=== PATIENT | female | born 2000 | race Two or more races ===

== ENCOUNTER 2025-02-09 18:29 | Emergency (ER) | payer OTHER ==
[~2025-02-09] VITALS: Ht 157.5 cm; Wt 60.3 kg
[2025-02-09] MEDS ORDERED: ZYRTEC10 MG PO (20:08)
== END 2025-02-09 20:34 | disposition home or self-care (01) ==
LOC: ER 18:30
DX: O26.893 Other specified pregnancy related conditions, third trimester (principal); R21 Rash and other nonspecific skin eruption; Z3A.29 29 weeks gestation of pregnancy

== ENCOUNTER 2025-02-12 03:04 | Outpatient (CLI) | payer OTHER ==
[~2025-02-12] VITALS: Ht 157.5 cm; Wt 61.7 kg
[2025-02-12] VITALS (7 sets, daily range): BP systolic 96–114; BP diastolic 57–75; O2SAT 97
[~2025-02-12 03:04] MED LIST: ZYRTEC10 MG PO
[2025-02-12] MEDS ORDERED: RINGERS SOLUTION,LACTATED 1,000 ML IV SCH (03:15)
[2025-02-12 03:37] LABS: BASO % 0.2 % (0.1-1.2); EOS # 0.06 (0.04-0.54); EOS % 0.7 % (0.7-7.0); LYMPH # 1.39 (1.18-3.74); LYMPH % 16.6 % (19.3-53.1); MEAN PLATELET VOLUME 10.10 fl (9.4-12.4); MONO # 0.83 (0.24-0.82); MONO % 9.9 % (4.7-12.5); NEUT # 6.00 (1.56-6.13); NEUT % 71.9 % (34.0-71.1); RED CELL DISTRIBUTION WIDTH 12.4 % (11.6-14.4); URINE APPEARANCE Clear; URINE BILIRRUBIN Small (NEGATIVE); URINE BLOOD Negative; URINE COLOR Dark Yellow; URINE EPITHELIAL CELLS 34.4 uL (0.0-38.8); URINE GLUCOSE Negative (NEGATIVE); URINE KETONE Trace (NEGATIVE); URINE LEUKOCYTE Moderate; URINE NITRATE Negative; URINE PROTEIN 30 (NEGATIVE); URINE RBC 19.6 uL (0.0-20.8); URINE UROBILINOGEN 2.0 E.U./dl; URINE WBC 47.2 uL (0.0-23.2)
[2025-02-12 03:38] LABS: URINE CAST 0.58 uL (0.0-1.40)
[2025-02-12] MEDS ORDERED: TERBUTALINE SULFATE 1 MG/ML AMPUL SUBCUTANEO ONE (05:30)
[2025-02-12] MEDS ORDERED: NIFEDIPINE 10 MG CAPSULE PO ONE (13:54)
[2025-02-12] MEDS ORDERED: NIFEDIPINE 20 MG CAPSULE PO ONE (13:54)
[2025-02-12] MEDS ORDERED: AMPICILLIN SODIUM 2,000 MG VIAL IV NR (14:00)
[2025-02-12] MEDS ORDERED: BETAMETHASONE ACETATE,SOD PHOS 30 MG/5 ML ML IM NR (14:00)
[2025-02-12] MEDS ORDERED: NIFEDIPINE 30 MG TAB.SA.OSM PO ONE (14:00)
[2025-02-12 15:35] LABS: INR 0.99
[2025-02-12 15:40] LABS: ALT/SGPT 132.0 U/L (12-78); AST/SGOT 58.0 U/L (15-37); BILIRUBIN TOTAL 1.58 mg/dL (0.3-1.2); BUN CREA RATIO 13.0 (7.0-25.0); CREATININE SERUM 0.46 mg/dL (0.55-1.02); GFR 169.87; GLOBULINA 3.5 G/DL (2.4-3.5); GLUCOSE FASTING 87.0 mg/dL (65-100); OSMOLALITY SERUM 278.0 MOSM/KG (275-295)
[2025-02-12] MEDS ORDERED: AMPICILLIN SODIUM 1,000 MG VIAL IV SCH (17:00)
[2025-02-12] MEDS ORDERED: NIFEDIPINE 30 MG TAB.SA.OSM PO SCH (21:00)
[2025-02-13 04:16] VITALS: BP 99/55
[2025-02-13 06:25] VITALS: BP 100/61; O2SAT 97
[2025-02-13] MEDS ORDERED: SOD FERRIC GLUC COMPLX/SUCROSE 125 MG in 0.9 % SODIUM CHLORIDE 100 ML IV SCH (09:23)
[2025-02-13 11:13] VITALS: BP 95/52
[2025-02-13] MEDS ORDERED: SOD FERRIC GLUC COMPLX/SUCROSE 62.5 MG/5 ML AMPUL IV ONE (12:45)
[2025-02-13] MEDS ORDERED: FERROUS SULFAT325 MG PO (13:10)
[2025-02-13] MEDS ORDERED: BETAMETHASONE ACETATE,SOD PHOS 30 MG/5 ML ML IM NR (14:00)
[2025-02-13 15:16] VITALS: BP 108/72; O2SAT 97
== END 2025-02-13 15:17 | disposition home or self-care (01) ==
LOC: OBS/DEL 03:04 → LDR 13:44 → OBS/DEL 13:44 → LDR 02-13 15:17 → OBS/DEL 02-13 15:17
PROVIDERS: Obstetrics & Gynecology; ATTEND Specialist
DX: O46.93 Antepartum hemorrhage, unspecified, third trimester (principal); Z3A.30 30 weeks gestation of pregnancy

== ENCOUNTER 2025-02-19 05:26 | Inpatient (IN) | payer OTHER ==
[2025-02-19] VITALS (9 sets, daily range): BP systolic 101–134; BP diastolic 73–83
[~2025-02-19] VITALS: Ht 157.5 cm; Wt 61.7 kg
[~2025-02-19 05:26] MED LIST changes: +CHLORHEXIDINE GLUCONATE 120 ML BOTTLE TOP ONE; +ERYTHROMYCIN BASE OPHT 1GM EACH TUBE OP ONE; +FERROUS SULFAT325 MG PO; +LIDOCAINE HCL 1% 10ML VIAL ONE; +OXYTOCIN 20 UNITS/1000ML RL PIGGYBAG IV ONE
[2025-02-19] MEDS ORDERED: AMPICILLIN SODIUM 2,000 MG VIAL IV STA (05:28)
[2025-02-19] MEDS ORDERED: RINGERS SOLUTION,LACTATED 1,000 ML IV SCH (05:30)
[2025-02-19] MEDS ORDERED: PRENATABS RX T1 EACH PO (06:09)
[2025-02-19] MEDS ORDERED: NIFEDIPINE20 MG PO (06:12)
[2025-02-19] MEDS ORDERED: OXYTOCIN 1,000 ML IV SCH (07:30)
[2025-02-19] MEDS ORDERED: CHLORHEXIDINE GLUCONATE 120 ML BOTTLE TOP ONE (07:30)
[2025-02-19] MEDS ORDERED: ERYTHROMYCIN BASE OPHT 1GM EACH TUBE OP ONE (07:30)
[2025-02-19] MEDS ORDERED: ACETAMINOPHEN 500 MG GEL..CAP PO PRN (07:30)
[2025-02-19] MEDS ORDERED: LIDOCAINE HCL 1% 10ML VIAL IJ ONE (07:30)
[2025-02-19 08:30] LABS: ALT/SGPT 105.0 U/L (12-78); AST/SGOT 61.0 U/L (15-37); BILIRUBIN TOTAL 1.69 mg/dL (0.3-1.2); BUN CREA RATIO 32.0 (7.0-25.0); CREATININE SERUM 0.37 mg/dL (0.55-1.02); GFR 218.39; GLOBULINA 4.0 G/DL (2.4-3.5); GLUCOSE FASTING 86.0 mg/dL (65-100); OSMOLALITY SERUM 275.0 MOSM/KG (275-295)
[2025-02-19 08:46] LABS: BASO % 0.4 % (0.1-1.2); EOS # 0.09 (0.04-0.54); EOS % 0.8 % (0.7-7.0); LYMPH # 1.64 (1.18-3.74); LYMPH % 15.1 % (19.3-53.1); MEAN PLATELET VOLUME 10.90 fl (9.4-12.4); MONO # 0.95 (0.24-0.82); MONO % 8.7 % (4.7-12.5); NEUT # 8.05 (1.56-6.13); NEUT % 74.0 % (34.0-71.1); RED CELL DISTRIBUTION WIDTH 12.8 % (11.6-14.4)
[2025-02-19] MEDS ORDERED: BENZOCAINE/MENTHOL 90 ML BOTTLE TOP SCH (09:00)
[2025-02-19] MEDS ORDERED: HYDROCORTISONE 2.5% 30 GM TUBE RECTAL SCH (09:00)
[2025-02-19 10:54] LABS: INR 0.95
[2025-02-20 02:00] VITALS: BP 118/64
[2025-02-20 02:35] LABS: BASO % 0.5 % (0.1-1.2); EOS # 0.04 (0.04-0.54); EOS % 0.4 % (0.7-7.0); LYMPH # 1.69 (1.18-3.74); LYMPH % 17.0 % (19.3-53.1); MEAN PLATELET VOLUME 10.50 fl (9.4-12.4); MONO # 0.77 (0.24-0.82); MONO % 7.8 % (4.7-12.5); NEUT # 7.31 (1.56-6.13); NEUT % 73.6 % (34.0-71.1); RED CELL DISTRIBUTION WIDTH 12.5 % (11.6-14.4)
[2025-02-20 08:36] VITALS: BP 112/74
[2025-02-20 16:15] VITALS: BP 112/74
== END 2025-02-20 18:40 | disposition home or self-care (01) | DRG 805 ==
LOC: LDR 05:26 → OB/GYN 05:26
PROVIDERS: ADMIT Specialist; ATTEND Specialist
PROC: 10E0XZZ Delivery of Products of Conception, External Approach (ICD-10-PCS; principal; 2025-02-19)
PROC: 0W8NXZZ Division of Female Perineum, External Approach (ICD-10-PCS; 2025-02-19)
PROC: 0HQ9XZZ Repair Perineum Skin, External Approach (ICD-10-PCS; 2025-02-19)
PROC: 4A1HXCZ Monitoring of Products of Conception, Cardiac Rate, External Approach (ICD-10-PCS; 2025-02-19)
DX: O70.0 First degree perineal laceration during delivery (principal); O60.14X0 Preterm labor third trimester with preterm delivery third trimester, not applicable or unspecified; Z37.0 Single live birth; O99.02 Anemia complicating childbirth; D64.9 Anemia, unspecified; Z3A.31 31 weeks gestation of pregnancy